=== PATIENT | female | born 1960 | race Caucasian/White ===

== ENCOUNTER → 2017-11-01 | Outpatient (CLI) | payer OTHER ==
[~2017-11-01] MED LIST: ADVIL100 M2 PO; FAMOTIDINE20 MG PO; FISH OIL + VIT1 EACH PO; HYDROCODON-ACE1 EAC7 PO; NORVASC 5 MG TAB5 MG PO; RANITIDINE 150150 M1 PO; SIMVASTATIN20 MG PO; VITAMIN E100 UNI2 PO
== END ==
LOC: HYPER 10-25 11:28
DX: S81.801D Unspecified open wound, right lower leg, subsequent encounter (principal); I10 Essential (primary) hypertension; Z90.710 Acquired absence of both cervix and uterus; Z87.891 Personal history of nicotine dependence; X58.XXXD Exposure to other specified factors, subsequent encounter